=== PATIENT | female | born 1985 | race Caucasian/White ===

== ENCOUNTER 2016-08-16 17:23 | Emergency (ER) | payer OTHER ==
[2016-08-16] MEDS ORDERED: ONDANSETRON 4MG/2ML VIAL (J2405) As Ordered ONE (17:47)
[2016-08-16 18:11] LABS: BASO % 0.4 % (0.0-1.0); EOS % 0.5 % (0.0-3.0); LARGE UNSTAINED CELL # 0.2 K/mm3 (0.0-0.4); LARGE UNSTAINED CELL % 1.9 % (0.0-4.0); MEAN CORPUSCULAR HGB CONC 33.9 g/dl (32.0-36.5); MEAN CORPUSCULAR VOLUME 79.8 fl (80.0-96.0); MONO # 0.4 K/mm3 (0.0-0.8); MONO % 4.5 % (0.0-5.0); NEUTROPHILS % 71.8 % (36.0-66.0); PLATELET COUNT, AUTOMATED 302 k/mm3 (150-450); RED CELL DISTRIBUTION WIDTH 12.7 % (11.5-14.5); WHITE BLOOD COUNT 9.7 K/mm3 (4.0-10.0)
--- NOTE | 2016-08-16 18:28 | REP ---
Clinical: Dating and viability. Technique: Transabdominal first trimester examination with color Doppler evaluation. Findings: Single live early intrauterine is appreciated. Gestational sac with yolk sac and pole identified. [place]-rump length of 19 mm corresponds to 8 weeks 3 days gestational age with estimated date of delivery 03/25/2017 . heart rate equals 171 beats per minute. No gross abnormalities are identified. Impression: Single live early intrauterine at 8 weeks 3 days gestational age. Complete anatomical assessment should be performed and 19-20 weeks. Signed by Chace Ramsey MD 08/16/2016 06:19 P
[2016-08-16 18:49] LABS: ANION GAP 10 MEQ/L (8-16); BLOOD UREA NITROGEN 6 MG/DL (7-18); CALCIUM LEVEL 8.6 MG/DL (8.5-10.1); CARBON DIOXIDE LEVEL 24 MEQ/L (21-32); CHLORIDE LEVEL 102 MEQ/L (98-107); CREATININE FOR GFR 0.78 MG/DL (0.55-1.02); GLOMERULAR FILTRATION RATE > 60.0 (>60); GLUCOSE, FASTING 82 MG/DL (70-105); HCG, SERUM QUANTITATIVE 106595 MIU/ML; POTASSIUM SERUM 3.8 MEQ/L (3.5-5.1); SODIUM LEVEL 136 MEQ/L (136-145)
[2016-08-16] MEDS ORDERED: ACETAMINOPHEN 325 MG TAB As Ordered ONE (19:31)
--- NOTE | 2016-08-16 19:38 | EDDOCDS ---
Nurse's Notes [facility] Name: Vadim Simmons Age: 31 yrs Sex: Female : 1985 Arrival Date: 08/16/2016 Time: 17:23 Bed I1 / M1 Private MD: Sarah Hughes ANP Diagnosis: Vomiting;Other specified related conditions Presentation: 08/16 17:27 Presenting complaint: Patient states: "I'm having abdominal pains since this morning. I mb9 tried to work but I don't understand it. I've been vomiting and I'm ". Risk factors: the patient reports no vaginal bleeding. Adult Sepsis Screening: The patient does not have new or worsening altered mentation. Patient's respiratory rate is less than 22. Systolic blood pressure is greater than 100. Patient has a qSOFA score of 0- Negative Sepsis Screen. Suicide/Homicide risk assessment- the patient denies having any suicidal and/or homicidal ideations and does not present with any other emotional, behavioral or mental health complaints. Status: Patient is not a vehicle service agent or dependent. Transition of care: patient was not received from another setting of care. 17:27 Acuity: CHANELLE Level 3 mb9 17:27 Method Of Arrival: Walkin/Carried/Asstd mb9 Triage Assessment: 17:29 General: Appears distressed, Behavior is crying. Pain: Location: abdomen Pain currently mb9 is 10 out of 10 on a pain scale. Quality of pain is described as sharp, stabbing, Pain began this am. HIV screening NA for this visit Offered previously. Respiratory: Airway is patent Respiratory effort is even, unlabored. GI: Abdomen is obese, Reports nausea, vomiting. BATTERY STACKER: 17:29 2, Full Term 1, Living 1, LMP 06/14/2016, Verified, EDC 03/21/2017, pml Gestational age from LMP: 9 weeks 0 days Historical: - Allergies: no known allergies; - Home Meds: 1. aspirin 325 mg Oral tab 2 tabs as needed 2. ferrous sulfate 325 mg (65 mg iron) Oral TbEC three times a day 3. Omeprazole 15 mg Oral once daily 4. Sertraline 100 mg daily 5. Vitamin C Oral daily 6. Vitamin D Oral daily 7. Vitamin Oral tab 1 tab once daily - PMHx: Anemia; Depression; GERD; vitamin c and vitamin d deficiency; - PSHx: ; - Social history: Smoking status: Patient states was never smoker of tobacco. No barriers to communication noted, The patient speaks fluent Armenian. - Family history: Not pertinent. - : The pt / caregiver states he / she is not on anticoagulants. Home medication list is obtained from the patient. - Exposure Risk Screening:: None identified. Screenin:01 Screening information is obtained from the patient. Fall risk: No risks identified. pml Assistance ADL's: requires no assistance with activities of daily living. Abuse/DV Screen: The patient / caregiver reports he/she is: not in a situation that causes fear, pain or injury. Nutritional screening: No deficits noted. Advance Directives: Currently, there is no health care proxy. home support is adequate. Assessment: 18:01 General: Appears uncomfortable, Behavior is appropriate for age, cooperative, crying. pml Pain: Location: abdomen Pain currently is 10 out of 10 on a pain scale. Neurological: Level of Consciousness is awake, alert, Oriented to person, place, time. Cardiovascular: Capillary refill < 3 seconds. Respiratory: Airway is patent Respiratory effort is even, unlabored, Respiratory pattern is regular, symmetrical. GI: Abdomen is non- distended obese, Bowel sounds present X 4 quads. Abd is soft X 4 quads Abd is tender to palpation in right lower quadrant and left lower quadrant. Derm: Skin is pink, warm & dry. 19:34 General: Appears in no apparent distress, comfortable, Behavior is appropriate for age, slm cooperative, pt tolerated fluids . Vital Signs: 17:25 BP 155 / 86; Pulse 76; Resp 18; Temp 98.0(O); Pulse Ox 100% on R/A; Weight 119.29 kg [facility] (R); Height 5 ft. 6 in. (167.64 cm) (R); Pain 10/10; 19:35 BP 134 / 80; Pulse 78; Resp 18; Temp 98.1; Pulse Ox 100% ; slm 17:25 Body Mass Index 42.45 (119.29 kg, 167.64 cm) [facility] Vitals: 17:25 Log In Time: August 16, 2016 at 17:23. [facility] ED Course: 17:25 Patient visited by Laverne Krueger. [facility] 17:25 Sarah Hughes is Private Physician. dem1 17:25 Patient moved to Waiting dem1 17:26 Patient moved to Pre RCE dem1 17:28 Triage Initiated mb9 17:31 Patient moved to Triage 1 mb9 17:35 [facility] ck7 17:35 Aditya Melgoza MD is Attending Physician. ck7 17:35 Patient visited by Frank Han RPA-C. ck7 17:41 Patient moved to I1 / M1 mb9 17:59 Patient moved to Ultrasound am17 18:01 The patient / caregiver is instructed regarding the plan of care and ED course. Patient pml has correct armband on for positive identification. Bed in low position. Call light in reach. 18:01 Inserted peripheral IV: 20gauge IV in right antecubital area and blood collected. pml Patient tolerated the procedure well. 18:02 Patient visited by Christiane Abad RN. pml 18:10 Patient moved to I1 / M1 am17 18:48 Patient visited by Frank Han RPA-C. ck7 18:55 US 1st trimester Returned. EDMS 18:59 [facility] Payment Agreement was scanned into [employer] and attached to record. kf3 19:23 Patient visited by Frank Han RPA-C. ck7 19:34 Luz Maria Mckeon LPN is Primary Nurse. slm 19:35 Discontinued lock intact, bleeding controlled, pressure dressing applied, No slm redness/swelling at site. No procedures done that require assistance. 19:36 Patient visited by Luz Maria Mckeon LPN. slm Administered Medications: 18:00 Drug: Ondansetron 4 mg [ondansetron HCl 2 mg/mL intravenous solution (2 mL)] Route: pml IVP; Site: right antecubital; 19:37 Follow up: Response: Nausea is resolved slm 18:00 Drug: NS 0.9% 1000 ml [sodium chloride 0.9 % injection solution] Route: IV; Rate: pml bolus; Site: right antecubital; 19:23 Follow up: IV Status: Completed infusion; IV Intake: 1000ml slm 19:34 Drug: Acetaminophen 650 mg [acetaminophen 325 mg tablet (2 tabs)] Route: PO; slm Intake: 19:23 IV: 1000.00ml; Total: 1000.00ml. slm Order Results: Lab Order: CBC with Diff; SPEC'M 08/16/16 17:55 Test: WHITE BLOOD COUNT; Value: 9.7; Range: 4.0-10.0; Units: K/mm3; Status: F Test: RED BLOOD COUNT; Value: 4.60; Range: 4.00-5.40; Units: M/mm3; Status: F Test: HEMOGLOBIN; Value: 12.4; Range: 12.0-16.0; Units: g/dl; Status: F Test: HEMATOCRIT; Value: 36.7; Range: 36.0-47.0; Units: %; Status: F Test: MEAN CORPUSCULAR VOLUME; Value: 79.8; Range: 80.0-96.0; Abnormal: Below low normal; Units: fl; Status: F Test: MEAN CORPUSCULAR HEMOGLOBIN; Value: 27.0; Range: 27.0-33.0; Units: pg; Status: F Test: MEAN CORPUSCULAR HGB CONC; Value: 33.9; Range: 32.0-36.5; Units: g/dl; Status: F Test: RED CELL DISTRIBUTION WIDTH; Value: 12.7; Range: 11.5-14.5; Units: %; Status: F Test: PLATELET COUNT, AUTOMATED; Value: 302; Range: 150-450; Units: k/mm3; Status: F Test: NEUTROPHILS %; Value: 71.8; Range: 36.0-66.0; Abnormal: Above high normal; Units: %; Status: F Test: LYMPH %; Value: 21.0; Range: 24.0-44.0; Abnormal: Below low normal; Units: %; Status: F Test: MONO %; Value: 4.5; Range: 0.0-5.0; Units: %; Status: F Test: EOS %; Value: 0.5; Range: 0.0-3.0; Units: %; Status: F Test: BASO %; Value: 0.4; Range: 0.0-1.0; Units: %; Status: F Test: LARGE UNSTAINED CELL %; Value: 1.9; Range: 0.0-4.0; Units: %; Status: F Test: NEUTROPHILS #; Value: 7.0; Range: 1.8-7.7; Units: K/mm3; Status: F Test: LYMPH #; Value: 2.0; Range: 1.5-4.5; Units: K/mm3; Status: F Test: MONO #; Value: 0.4; Range: 0.0-0.8; Units: K/mm3; Status: F Test: EOS #; Value: 0.0; Range: 0.0-0.50; Units: K/mm3; Status: F Test: BASO #; Value: 0.0; Range: 0.0-0.2; Units: K/mm3; Status: F Test: LARGE UNSTAINED CELL #; Value: 0.2; Range: 0.0-0.4; Units: K/mm3; Status: F Lab Order: MED Profile; [facility]' 08/16/16 17:55 Test: GLUCOSE, FASTING; Value: 82; Range: 70-105; Units: MG/DL; Status: F Test: BLOOD UREA NITROGEN; Value: 6; Range: 7-18; Abnormal: Below low normal; Units: MG/DL; Status: F Test: CREATININE FOR GFR; Value: 0.78; Range: 0.55-1.02; Units: MG/DL; Status: F Test: GLOMERULAR FILTRATION RATE; Value: > 60.0; Range: >60; Status: F Test: SODIUM LEVEL; Value: 136; Range: 136-145; Units: MEQ/L; Status: F Test: POTASSIUM SERUM; Value: 3.8; Range: 3.5-5.1; Units: MEQ/L; Status: F Test: CHLORIDE LEVEL; Value: 102; Range: 98-107; Units: MEQ/L; Status: F Test: CARBON DIOXIDE LEVEL; Value: 24; Range: 21-32; Units: MEQ/L; Status: F Test: ANION GAP; Value: 10; Range: 8-16; Units: MEQ/L; Status: F Test: CALCIUM LEVEL; Value: 8.6; Range: 8.5-10.1; Units: MG/DL; Status: F Test Note: ; Units are mL/min/1.73 m2 Chronic Kidney Disease Staging per NKF: Stage I & II GFR >=60 Normal to Mildly Decreased Stage III GFR 30-59 Moderately Decreased Stage IV GFR 15-29 Severely Decreased Stage V GFR <15 Very Little GFR Left ESRD GFR <15 on CAR HOSTLER Lab Order: Hcg, Serum Quantitative; [facility] 08/16/16 17:55 Test: HCG, SERUM QUANTITATIVE; Value: [id number]; Units: MIU/ML; Status: F Test Note: ; GESTATIONAL AGE APPROXIMATE HCG RANGE (MIU/ML) 0.2-1 WEEK 5-50 1-2 WEEKS 50-500 2-3 WEEKS 100-5,000 3-4 WEEKS 500-10,000 4-5 WEEKS 1,000-50,000 5-6 WEEKS 10,000-100,000 6-8 WEEKS 15,000-200,000 2-3 MONTHS 10,000-100,000 NON FEMALES LESS THAN 3.0 Patient samples may contain human heterophilic antibodies that could react with immunoassays to give falsely elevated or depressed results. This assay has been designed to minimize interference from heterophilic antibodies. Elevated hCG levels have also been associated with trophoblastic disease and nontrophoblastic neoplasms. The possibility of having these diseases should be considered before a diagnosis of is made. This test is not intended for use as a surrogate marker for aiding in the diagnosis or monitoring the treatment of cancer patients. Siemens [place] methodology. Lab Order: Type & Screen; [facility] 08/16/16 17:55 Test: BLOOD TYPE; Value: A POS; Status: F Test: AB SCREEN (INDIRECT JEFFREY)VIS; Value: NEGATIVE; Status: F Lab Order: UA; [facility] 08/16/16 17:55 Test: APPEARANCE, URINE; Value: CLEAR; Range: CLEAR; Status: F Test: COLOR, URINE; Value: YELLOW; Range: YELLOW; Status: F Test: PH,URINE; Value: 6.0; Range: 5.0-9.0; Units: UNITS; Status: F Test: SPECIFIC GRAVITY URINE AUTO; Value: 1.005; Range: 1.002-1.035; Status: F Test: PROTEIN, URINE AUTO; Value: NEGATIVE; Range: NEGATIVE; Units: mg/dL; Status: F Test: GLUCOSE, URINE (UA) AUTO; Value: NEGATIVE; Range: NEGATIVE; Units: mg/dL; Status: F Test: KETONE, URINE AUTO; Value: NEGATIVE; Range: NEGATIVE; Units: mg/dL; Status: F Test: UROBILINOGEN, URINE AUTO; Value: 0.2; Range: 0.0-2.0; Units: mg/dL; Status: F Test: BILIRUBIN, URINE AUTO; Value: NEGATIVE; Range: NEGATIVE; Status: F Test: NITRITE, URINE AUTO; Value: NEGATIVE; Range: NEGATIVE; Status: F Test: LEUKOCYTE ESTERASE, URINE AUTO; Value: NEGATIVE; Range: NEGATIVE; Status: F Test: BLOOD, URINE BLOOD; Value: NEGATIVE; Range: NEGATIVE; Status: F Test: WBC, URINE AUTO; Value: 2; Range: 0-3; Units: /HPF; Status: F Test: RBC, URINE AUTO; Value: 1; Range: 0-3; Units: /HPF; Status: F Test: BACTERIA, URINE AUTO; Value: 1+; Range: NEGATIVE; Abnormal: Above high normal; Status: F Test: SQUAMOUS EPITHELIAL CELL UR AU; Value: 3; Range: 0-6; Units: /HPF; Status: F Test: HYALINE CAST, URINE AUTO; Value: 0; Range: 0-1; Units: /LPF; Status: F Radiology Order: US 1st trimester Test: US 1st trimester REASON FOR EXAMINATION: ABDOMINAL PAIN AND CRAMPING, R/O DEMISE; Clinical: Dating and viability.; ; Technique: Transabdominal first trimester examination with color Doppler; evaluation.; ; Findings:; Single live early intrauterine is appreciated. Gestational sac with; yolk sac and pole identified. [place]-rump length of 19 mm corresponds to 8; weeks 3 days gestational age with estimated date of delivery 03/25/2017 . ; heart rate equals 171 beats per minute. No gross abnormalities are identified.; ; Impression:; Single live early intrauterine at 8 weeks 3 days gestational age.; Complete anatomical assessment should be performed and 19-20 weeks.; ; ; Signed by; Chace Ramsey MD 08/16/2016 06:19 P; Outcome: 19:29 Discharge ordered by Provider. ck7 19:36 Discharge Assessment: Patient awake, alert and oriented x 3. No cognitive and/or slm functional deficits noted. Patient verbalized understanding of disposition instructions. patient administered narcotics - no. The following High Risk Discharge criteria are identified: None. Discharged to home ambulatory. Condition: good. Discharge instructions given to patient, Instructed on discharge instructions, follow up and referral plans. medication usage, Demonstrated understanding of instructions, medications, Pt was receptive of discharge instructions/ teaching. Prescriptions given X 1. Ultrasound Study completed. Property :Personal belongings accompany Pt. 19:38 Patient left the ED. slm Signatures: Dispatcher [employer] EDMS Wilfredo Novoa, Reg Reg kf3 Christiane AbadRN RN Laverne Cee1 Frank Han, JUNAID-C RPA-Cck7 Luz Maria Mckeon LPN SCREENER OPERATOR Senia Avitia am17 Connor WattsRN RN mb9 Corrections: (The following items were deleted from the chart) 17:45 17:29 2, Full Term 1, Living 1, LMP 06/14/2016 alo9 onel MTDD
--- NOTE | 2016-08-16 19:38 | EDDOCDS ---
Physician Documentation [facility] Name: Vadim Simmons Age: 31 yrs Sex: Female : 1985 Arrival Date: 08/16/2016 Time: 17:23 Bed I1 / M1 Private MD: Sarah Hughes ANP Disposition: 08/16/16 19:29 Discharged to Home/Self Care. Impression: Vomiting, Other specified related conditions. - Condition is Stable. - Discharge Instructions: First Trimester of , Nausea and Vomiting. - Prescriptions for ZOFRAN ODT 4 mg - dissolve 1 tablet by ORAL route 4 times per day As needed do not chew, do not swallow whole; 10 tablet. - Medication Reconciliation, Local Pharmacy Hours form. - Follow up: Private Physician; When: Tomorrow; Reason: Recheck today's complaints, Continuance of care. - Problem is new. - Symptoms have improved. - Notes: USE MEDICATION INSTRUTCED, FOLLOW UP WITH YOUR DOCTOR IN 2-3 DAYS, RETURN TO THE ER IF THE SYMPTOMS WORSEN OR BECOME CONCERNING Historical: - Allergies: no known allergies; - Home Meds: 1. aspirin 325 mg Oral tab 2 tabs as needed 2. ferrous sulfate 325 mg (65 mg iron) Oral TbEC three times a day 3. Omeprazole 15 mg Oral once daily 4. Sertraline 100 mg daily 5. Vitamin C Oral daily 6. Vitamin D Oral daily 7. Vitamin Oral tab 1 tab once daily - PMHx: Anemia; Depression; GERD; vitamin c and vitamin d deficiency; - PSHx: ; - Social history: Smoking status: Patient states was never smoker of tobacco. No barriers to communication noted, The patient speaks fluent Honduran. - Family history: Not pertinent. - : The pt / caregiver states he / she is not on anticoagulants. Home medication list is obtained from the patient. - Exposure Risk Screening:: None identified. HURL SHAKER: 08/16 17:29 2, Full Term 1, Living 1, LMP 06/14/2016, Verified, EDC 03/21/2017, pml Gestational age from LMP: 9 weeks 0 days Vital Signs: 17:25 BP 155 / 86; Pulse 76; Resp 18; Temp 98.0(O); Pulse Ox 100% on R/A; Weight 119.29 kg / dem1 262.99 lbs (R); Height 5 ft. 6 in. (167.64 cm) (R); Pain 10/10; 19:35 BP 134 / 80; Pulse 78; Resp 18; Temp 98.1; Pulse Ox 100% ; slm 17:25 Body Mass Index 42.45 (119.29 kg, 167.64 cm) dem1 MDM: 17:41 IV Saline Lock ordered. ck7 17:41 Ondansetron 4 mg IVP once ordered. ck7 17:41 NS 0.9% 1000 ml IV at bolus once ordered. ck7 17:42 CBC with Diff Ordered. EDMS 17:42 MED Profile Ordered. EDMS 17:42 Hcg, Serum Quantitative Ordered. EDMS 17:42 Type & Screen Ordered. EDMS 17:42 UA Ordered. EDMS 17:42 Urine Culture Ordered. EDMS 17:43 US 1st trimester Ordered. EDMS 18:48 CBC with Diff Reviewed. ck7 18:48 Financial registration complete. kf3 18:52 MED Profile Reviewed. ck7 18:52 Hcg, Serum Quantitative Reviewed. ck7 18:59 [facility] Payment Agreement was scanned into [employer] and attached to record. kf3 19:15 UA Reviewed. ck7 19:15 Type & Screen Reviewed. ck7 19:15 US 1st trimester Reviewed. ck7 19:17 Fluid Challenge ordered. ck7 19:27 Acetaminophen Tablet 650 mg PO once ordered. ck7 Administered Medications: 18:00 Drug: Ondansetron 4 mg [ondansetron HCl 2 mg/mL intravenous solution (2 mL)] Route: pml IVP; Site: right antecubital; 19:37 Follow up: Response: Nausea is resolved [facility] 18:00 Drug: NS 0.9% 1000 ml [sodium chloride 0.9 % injection solution] Route: IV; Rate: pml bolus; Site: right antecubital; 19:23 Follow up: IV Status: Completed infusion; IV Intake: 1000ml [facility] 19:34 Drug: Acetaminophen 650 mg [acetaminophen 325 mg tablet (2 tabs)] Route: PO; [facility] Signatures: Dispatcher [employer] EDMS Wilfredo Novoa, Reg Reg kf3 Christiane Abad,LYNSEY RN pml Frank Han, JUNAID-C RPA-Cck7 Luz Maria Mckeon LPN LPN [facility] Connor Watts,RN RN mb9 The chart was reviewed and I authenticate all verbal orders and agree with the evaluation and treatment provided.Attachments: 18:59 [facility] Payment Agreement kf3 MTDD
--- NOTE | 2016-08-18 20:38 | EDDOCDS ---
Physician Documentation [facility] Name: Vadim Simmons Age: 31 yrs Sex: Female : 1985 Arrival Date: 08/16/2016 Time: 17:23 Bed I1 / M1 Private MD: Sarah Hughes ANP Disposition: 08/16/16 19:29 Discharged to Home/Self Care. Impression: Vomiting, Other specified related conditions. - Condition is Stable. - Discharge Instructions: First Trimester of , Nausea and Vomiting. - Prescriptions for ZOFRAN ODT 4 mg - dissolve 1 tablet by ORAL route 4 times per day As needed do not chew, do not swallow whole; 10 tablet. - Medication Reconciliation, Local Pharmacy Hours form. - Follow up: Private Physician; When: Tomorrow; Reason: Recheck today's complaints, Continuance of care. - Problem is new. - Symptoms have improved. - Notes: USE MEDICATION INSTRUTCED, FOLLOW UP WITH YOUR DOCTOR IN 2-3 DAYS, RETURN TO THE ER IF THE SYMPTOMS WORSEN OR BECOME CONCERNING Historical: - Allergies: no known allergies; - Home Meds: 1. aspirin 325 mg Oral tab 2 tabs as needed 2. ferrous sulfate 325 mg (65 mg iron) Oral TbEC three times a day 3. Omeprazole 15 mg Oral once daily 4. Sertraline 100 mg daily 5. Vitamin C Oral daily 6. Vitamin D Oral daily 7. Vitamin Oral tab 1 tab once daily - PMHx: Anemia; Depression; GERD; vitamin c and vitamin d deficiency; - PSHx: ; - Social history: Smoking status: Patient states was never smoker of tobacco. No barriers to communication noted, The patient speaks fluent Lebanese. - Family history: Not pertinent. - : The pt / caregiver states he / she is not on anticoagulants. Home medication list is obtained from the patient. - Exposure Risk Screening:: None identified. BATTERY STACKER: 08/16 17:29 2, Full Term 1, Living 1, LMP 06/14/2016, Verified, EDC 03/21/2017, pml Gestational age from LMP: 9 weeks 0 days Vital Signs: 17:25 BP 155 / 86; Pulse 76; Resp 18; Temp 98.0(O); Pulse Ox 100% on R/A; Weight 119.29 kg / dem1 262.99 lbs (R); Height 5 ft. 6 in. (167.64 cm) (R); Pain 10/10; 19:35 BP 134 / 80; Pulse 78; Resp 18; Temp 98.1; Pulse Ox 100% ; slm 17:25 Body Mass Index 42.45 (119.29 kg, 167.64 cm) dem1 MDM: 17:41 IV Saline Lock ordered. ck7 17:41 Ondansetron 4 mg IVP once ordered. ck7 17:41 NS 0.9% 1000 ml IV at bolus once ordered. ck7 17:42 CBC with Diff Ordered. EDMS 17:42 MED Profile Ordered. EDMS 17:42 Hcg, Serum Quantitative Ordered. EDMS 17:42 Type & Screen Ordered. EDMS 17:42 UA Ordered. EDMS 17:42 Urine Culture Ordered. EDMS 17:43 US 1st trimester Ordered. EDMS 18:48 CBC with Diff Reviewed. ck7 18:48 Financial registration complete. kf3 18:52 MED Profile Reviewed. ck7 18:52 Hcg, Serum Quantitative Reviewed. ck7 18:59 [facility] Payment Agreement was scanned into [employer] and attached to record. kf3 19:15 UA Reviewed. ck7 19:15 Type & Screen Reviewed. ck7 19:15 US 1st trimester Reviewed. ck7 19:17 Fluid Challenge ordered. ck7 19:27 Acetaminophen Tablet 650 mg PO once ordered. ck7 20:13 T-Sheet-- Draft Copy was scanned into [employer] and attached to record. klr Administered Medications: 18:00 Drug: Ondansetron 4 mg [ondansetron HCl 2 mg/mL intravenous solution (2 mL)] Route: pml IVP; Site: right antecubital; 19:37 Follow up: Response: Nausea is resolved [facility] 18:00 Drug: NS 0.9% 1000 ml [sodium chloride 0.9 % injection solution] Route: IV; Rate: pml bolus; Site: right antecubital; 19:23 Follow up: IV Status: Completed infusion; IV Intake: 1000ml [facility] 19:34 Drug: Acetaminophen 650 mg [acetaminophen 325 mg tablet (2 tabs)] Route: PO; [facility] Signatures: Dispatcher [employer] EDMS Wilfredo Novoa, Reg Reg kf3 Christiane Abad RN RN pml Kwaczala, Christopher, RPA-C RPA-Cck7 Luz Maria Mckeon LPN LPN Connor Marcos RN RN mb9 Roxie Triplett The chart was reviewed and I authenticate all verbal orders and agree with the evaluation and treatment provided.Attachments: 18:59 [facility] Payment Agreement kf3 20:13 T-Sheet-- Draft Copy klr Chart Complete MTDD
--- NOTE | 2016-08-18 20:38 | EDDOCDS ---
Physician Documentation [facility] Name: Vadim Simmons Age: 31 yrs Sex: Female : 1985 Arrival Date: 08/16/2016 Time: 17:23 Bed I1 / M1 Private MD: Sarah Hughes ANP Disposition: 08/16/16 19:29 Discharged to Home/Self Care. Impression: Vomiting, Other specified related conditions. - Condition is Stable. - Discharge Instructions: First Trimester of , Nausea and Vomiting. - Prescriptions for ZOFRAN ODT 4 mg - dissolve 1 tablet by ORAL route 4 times per day As needed do not chew, do not swallow whole; 10 tablet. - Medication Reconciliation, Local Pharmacy Hours form. - Follow up: Private Physician; When: Tomorrow; Reason: Recheck today's complaints, Continuance of care. - Problem is new. - Symptoms have improved. - Notes: USE MEDICATION INSTRUTCED, FOLLOW UP WITH YOUR DOCTOR IN 2-3 DAYS, RETURN TO THE ER IF THE SYMPTOMS WORSEN OR BECOME CONCERNING Historical: - Allergies: no known allergies; - Home Meds: 1. aspirin 325 mg Oral tab 2 tabs as needed 2. ferrous sulfate 325 mg (65 mg iron) Oral TbEC three times a day 3. Omeprazole 15 mg Oral once daily 4. Sertraline 100 mg daily 5. Vitamin C Oral daily 6. Vitamin D Oral daily 7. Vitamin Oral tab 1 tab once daily - PMHx: Anemia; Depression; GERD; vitamin c and vitamin d deficiency; - PSHx: ; - Social history: Smoking status: Patient states was never smoker of tobacco. No barriers to communication noted, The patient speaks fluent German. - Family history: Not pertinent. - : The pt / caregiver states he / she is not on anticoagulants. Home medication list is obtained from the patient. - Exposure Risk Screening:: None identified. 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 6 in. (167.64 cm) (R); Pain 10/10; 19:35 BP 134 / 80; Pulse 78; Resp 18; Temp 98.1; Pulse Ox 100% ; slm 17:25 Body Mass Index 42.45 (119.29 kg, 167.64 cm) dem1 MDM: 17:41 IV Saline Lock ordered. ck7 17:41 Ondansetron 4 mg IVP once ordered. ck7 17:41 NS 0.9% 1000 ml IV at bolus once ordered. ck7 17:42 CBC with Diff Ordered. EDMS 17:42 MED Profile Ordered. EDMS 17:42 Hcg, Serum Quantitative Ordered. EDMS 17:42 Type & Screen Ordered. EDMS 17:42 UA Ordered. EDMS 17:42 Urine Culture Ordered. EDMS 17:43 US 1st trimester Ordered. EDMS 18:48 CBC with Diff Reviewed. ck7 18:48 Financial registration complete. kf3 18:52 MED Profile Reviewed. ck7 18:52 Hcg, Serum Quantitative Reviewed. ck7 18:59 [facility] Payment Agreement was scanned into [employer] and attached to record. kf3 19:15 UA Reviewed. ck7 19:15 Type & Screen Reviewed. ck7 19:15 US 1st trimester Reviewed. ck7 19:17 Fluid Challenge ordered. ck7 19:27 Acetaminophen Tablet 650 mg PO once ordered. ck7 20:13 T-Sheet-- Draft Copy was scanned into [employer] and attached to record. klr Administered Medications: 18:00 Drug: Ondansetron 4 mg [ondansetron HCl 2 mg/mL intravenous solution (2 mL)] Route: pml IVP; Site: right antecubital; 19:37 Follow up: Response: Nausea is resolved [facility] 18:00 Drug: NS 0.9% 1000 ml [sodium chloride 0.9 % injection solution] Route: IV; Rate: pml bolus; Site: right antecubital; 19:23 Follow up: IV Status: Completed infusion; IV Intake: 1000ml [facility] 19:34 Drug: Acetaminophen 650 mg [acetaminophen 325 mg tablet (2 tabs)] Route: PO; [facility] Signatures: Dispatcher [employer] EDMS Wilfredo Novoa, Reg Reg kf3 Christiane Abad RN RN pml Kwaczala, Christopher, RPA-C RPA-[id number] Luz Maria Mckeon LPN LPN Connor Marcos RN RN mb9 Roxie Triplett The chart was reviewed and I authenticate all verbal orders and agree with the evaluation and treatment provided.Attachments: 18:59 [facility] Payment Agreement kf3 20:13 T-Sheet-- Draft Copy klr Chart Complete MTDD
--- NOTE | 2016-08-18 20:38 | EDDOCDS ---
Nurse's Notes [facility] Name: Vadim Simmons Age: 31 yrs Sex: Female : 1985 Arrival Date: 08/16/2016 Time: 17:23 Bed I1 / M1 Private MD: Sarah Hughes ANP Diagnosis: Vomiting;Other specified related conditions Presentation: 08/16 17:27 Presenting complaint: Patient states: "I'm having abdominal pains since this morning. I mb9 tried to work but I don't understand it. I've been vomiting and I'm ". Risk factors: the patient reports no vaginal bleeding. Adult Sepsis Screening: The patient does not have new or worsening altered mentation. Patient's respiratory rate is less than 22. Systolic blood pressure is greater than 100. Patient has a qSOFA score of 0- Negative Sepsis Screen. Suicide/Homicide risk assessment- the patient denies having any suicidal and/or homicidal ideations and does not present with any other emotional, behavioral or mental health complaints. Status: Patient is not a food service aide or dependent. Transition of care: patient was not received from another setting of care. 17:27 Acuity: CHANELLE Level 3 mb9 17:27 Method Of Arrival: Walkin/Carried/Asstd mb9 Triage Assessment: 17:29 General: Appears distressed, Behavior is crying. Pain: Location: abdomen Pain currently mb9 is 10 out of 10 on a pain scale. Quality of pain is described as sharp, stabbing, Pain began this am. HIV screening NA for this visit Offered previously. Respiratory: Airway is patent Respiratory effort is even, unlabored. GI: Abdomen is obese, Reports nausea, vomiting. 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 aspirin 325 mg Oral tab 2 tabs as needed 2. ferrous sulfate 325 mg (65 mg iron) Oral TbEC three times a day 3. Omeprazole 15 mg Oral once daily 4. Sertraline 100 mg daily 5. Vitamin C Oral daily 6. Vitamin D Oral daily 7. Vitamin Oral tab 1 tab once daily - PMHx: Anemia; Depression; GERD; vitamin c and vitamin d deficiency; - PSHx: ; - Social history: Smoking status: Patient states was never smoker of tobacco. No barriers to communication noted, The patient speaks fluent Spanish. - Family history: Not pertinent. - : The pt / caregiver states he / she is not on anticoagulants. Home medication list is obtained from the patient. - Exposure Risk Screening:: None identified. Screenin:01 Screening information is obtained from the patient. Fall risk: No risks identified. pml Assistance ADL's: requires no assistance with activities of daily living. Abuse/DV Screen: The patient / caregiver reports he/she is: not in a situation that causes fear, pain or injury. Nutritional screening: No deficits noted. Advance Directives: Currently, there is no health care proxy. home support is adequate. Assessment: 18:01 General: Appears uncomfortable, Behavior is appropriate for age, cooperative, crying. pml Pain: Location: abdomen Pain currently is 10 out of 10 on a pain scale. Neurological: Level of Consciousness is awake, alert, Oriented to person, place, time. Cardiovascular: Capillary refill < 3 seconds. Respiratory: Airway is patent Respiratory effort is even, unlabored, Respiratory pattern is regular, symmetrical. GI: Abdomen is non- distended obese, Bowel sounds present X 4 quads. Abd is soft X 4 quads Abd is tender to palpation in right lower quadrant and left lower quadrant. Derm: Skin is pink, warm & dry. 19:34 General: Appears in no apparent distress, comfortable, Behavior is appropriate for age, slm cooperative, pt tolerated fluids . Vital Signs: 17:25 BP 155 / 86; Pulse 76; Resp 18; Temp 98.0(O); Pulse Ox 100% on R/A; Weight 119.29 kg [facility] (R); Height 5 ft. 6 in. (167.64 cm) (R); Pain 10/10; 19:35 BP 134 / 80; Pulse 78; Resp 18; Temp 98.1; Pulse Ox 100% ; slm 17:25 Body Mass Index 42.45 (119.29 kg, 167.64 cm) [facility] Vitals: 17:25 Log In Time: August 16, 2016 at 17:23. [facility] ED Course: 17:25 Patient visited by Laverne Krueger. [facility] 17:25 Sarah Hughes is Private Physician. dem1 17:25 Patient moved to Waiting dem1 17:26 Patient moved to Pre RCE dem1 17:28 Triage Initiated mb9 17:31 Patient moved to Triage 1 mb9 17:35 [facility] ck7 17:35 Aditya Melgoza MD is Attending Physician. ck7 17:35 Patient visited by Frank Han RPA-C. ck7 17:41 Patient moved to I1 / M1 mb9 17:59 Patient moved to Ultrasound am17 18:01 The patient / caregiver is instructed regarding the plan of care and ED course. Patient pml has correct armband on for positive identification. Bed in low position. Call light in reach. 18:01 Inserted peripheral IV: 20gauge IV in right antecubital area and blood collected. pml Patient tolerated the procedure well. 18:02 Patient visited by Christiane Abad RN. pml 18:10 Patient moved to I1 / M1 am17 18:48 Patient visited by Frank Han RPA-C. ck7 18:55 US 1st trimester Returned. EDMS 18:59 [facility] Payment Agreement was scanned into [employer] and attached to record. kf3 19:23 Patient visited by Frank Han RPA-C. ck7 19:34 Luz Maria Mckeon LPN is Primary Nurse. slm 19:35 Discontinued lock intact, bleeding controlled, pressure dressing applied, No slm redness/swelling at site. No procedures done that require assistance. 19:36 Patient visited by Luz Maria Mckeon LPN. slm 20:13 T-Sheet-- Draft Copy was scanned into [employer] and attached to record. klr Administered Medications: 18:00 Drug: Ondansetron 4 mg [ondansetron HCl 2 mg/mL intravenous solution (2 mL)] Route: pml IVP; Site: right antecubital; 19:37 Follow up: Response: Nausea is resolved [facility] 18:00 Drug: NS 0.9% 1000 ml [sodium chloride 0.9 % injection solution] Route: IV; Rate: pml bolus; Site: right antecubital; 19:23 Follow up: IV Status: Completed infusion; IV Intake: 1000ml [facility] 19:34 Drug: Acetaminophen 650 mg [acetaminophen 325 mg tablet (2 tabs)] Route: PO; [facility] Intake: 19:23 IV: 1000.00ml; Total: 1000.00ml. [facility] Order Results: Lab Order: CBC with Diff; SPEC'M 08/16/16 17:55 Test: WHITE BLOOD COUNT; Value: 9.7; Range: 4.0-10.0; Units: K/mm3; Status: F Test: RED BLOOD COUNT; Value: 4.60; Range: 4.00-5.40; Units: M/mm3; Status: F Test: HEMOGLOBIN; Value: 12.4; Range: 12.0-16.0; Units: g/dl; Status: F Test: HEMATOCRIT; Value: 36.7; Range: 36.0-47.0; Units: %; Status: F Test: MEAN CORPUSCULAR VOLUME; Value: 79.8; Range: 80.0-96.0; Abnormal: Below low normal; Units: fl; Status: F Test: MEAN CORPUSCULAR HEMOGLOBIN; Value: 27.0; Range: 27.0-33.0; Units: pg; Status: F Test: MEAN CORPUSCULAR HGB CONC; Value: 33.9; Range: 32.0-36.5; Units: g/dl; Status: F Test: RED CELL DISTRIBUTION WIDTH; Value: 12.7; Range: 11.5-14.5; Units: %; Status: F Test: PLATELET COUNT, AUTOMATED; Value: 302; Range: 150-450; Units: k/mm3; Status: F Test: NEUTROPHILS %; Value: 71.8; Range: 36.0-66.0; Abnormal: Above high normal; Units: %; Status: F Test: LYMPH %; Value: 21.0; Range: 24.0-44.0; Abnormal: Below low normal; Units: %; Status: F Test: MONO %; Value: 4.5; Range: 0.0-5.0; Units: %; Status: F Test: EOS %; Value: 0.5; Range: 0.0-3.0; Units: %; Status: F Test: BASO %; Value: 0.4; Range: 0.0-1.0; Units: %; Status: F Test: LARGE UNSTAINED CELL %; Value: 1.9; Range: 0.0-4.0; Units: %; Status: F Test: NEUTROPHILS #; Value: 7.0; Range: 1.8-7.7; Units: K/mm3; Status: F Test: LYMPH #; Value: 2.0; Range: 1.5-4.5; Units: K/mm3; Status: F Test: MONO #; Value: 0.4; Range: 0.0-0.8; Units: K/mm3; Status: F Test: EOS #; Value: 0.0; Range: 0.0-0.50; Units: K/mm3; Status: F Test: BASO #; Value: 0.0; Range: 0.0-0.2; Units: K/mm3; Status: F Test: LARGE UNSTAINED CELL #; Value: 0.2; Range: 0.0-0.4; Units: K/mm3; Status: F Lab Order: MED Profile; [facility] 08/16/16 17:55 Test: GLUCOSE, FASTING; Value: 82; Range: 70-105; Units: MG/DL; Status: F Test: BLOOD UREA NITROGEN; Value: 6; Range: 7-18; Abnormal: Below low normal; Units: MG/DL; Status: F Test: CREATININE FOR GFR; Value: 0.78; Range: 0.55-1.02; Units: MG/DL; Status: F Test: GLOMERULAR FILTRATION RATE; Value: > 60.0; Range: >60; Status: F Test: SODIUM LEVEL; Value: 136; Range: 136-145; Units: MEQ/L; Status: F Test: POTASSIUM SERUM; Value: 3.8; Range: 3.5-5.1; Units: MEQ/L; Status: F Test: CHLORIDE LEVEL; Value: 102; Range: 98-107; Units: MEQ/L; Status: F Test: CARBON DIOXIDE LEVEL; Value: 24; Range: 21-32; Units: MEQ/L; Status: F Test: ANION GAP; Value: 10; Range: 8-16; Units: MEQ/L; Status: F Test: CALCIUM LEVEL; Value: 8.6; Range: 8.5-10.1; Units: MG/DL; Status: F Test Note: ; Units are mL/min/1.73 m2 Chronic Kidney Disease Staging per NKF: Stage I & II GFR >=60 Normal to Mildly Decreased Stage III GFR 30-59 Moderately Decreased Stage IV GFR 15-29 Severely Decreased Stage V GFR <15 Very Little GFR Left ESRD GFR <15 on VOLCANOLOGY TEACHER Lab Order: Hcg, Serum Quantitative; [facility] 08/16/16 17:55 Test: HCG, SERUM QUANTITATIVE; Value: [id number]; Units: MIU/ML; Status: F Test Note: ; GESTATIONAL AGE APPROXIMATE HCG RANGE (MIU/ML) 0.2-1 WEEK 5-50 1-2 WEEKS 50-500 2-3 WEEKS 100-5,000 3-4 WEEKS 500-10,000 4-5 WEEKS 1,000-50,000 5-6 WEEKS 10,000-100,000 6-8 WEEKS 15,000-200,000 2-3 MONTHS 10,000-100,000 NON FEMALES LESS THAN 3.0 Patient samples may contain human heterophilic antibodies that could react with immunoassays to give falsely elevated or depressed results. This assay has been designed to minimize interference from heterophilic antibodies. Elevated hCG levels have also been associated with trophoblastic disease and nontrophoblastic neoplasms. The possibility of having these diseases should be considered before a diagnosis of is made. This test is not intended for use as a surrogate marker for aiding in the diagnosis or monitoring the treatment of cancer patients. [employer] Jasper methodology. Lab Order: Type & Screen; [facility]08/[facility] 17:55 Test: BLOOD TYPE; Value: A POS; Status: F Test: AB SCREEN (INDIRECT JEFFREY)VIS; Value: NEGATIVE; Status: F Lab Order: UA; [facility] 08/16/16 17:55 Test: APPEARANCE, URINE; Value: CLEAR; Range: CLEAR; Status: F Test: COLOR, URINE; Value: YELLOW; Range: YELLOW; Status: F Test: PH,URINE; Value: 6.0; Range: 5.0-9.0; Units: UNITS; Status: F Test: SPECIFIC GRAVITY URINE AUTO; Value: 1.005; Range: 1.002-1.035; Status: F Test: PROTEIN, URINE AUTO; Value: NEGATIVE; Range: NEGATIVE; Units: mg/dL; Status: F Test: GLUCOSE, URINE (UA) AUTO; Value: NEGATIVE; Range: NEGATIVE; Units: mg/dL; Status: F Test: KETONE, URINE AUTO; Value: NEGATIVE; Range: NEGATIVE; Units: mg/dL; Status: F Test: UROBILINOGEN, URINE AUTO; Value: 0.2; Range: 0.0-2.0; Units: mg/dL; Status: F Test: BILIRUBIN, URINE AUTO; Value: NEGATIVE; Range: NEGATIVE; Status: F Test: NITRITE, URINE AUTO; Value: NEGATIVE; Range: NEGATIVE; Status: F Test: LEUKOCYTE ESTERASE, URINE AUTO; Value: NEGATIVE; Range: NEGATIVE; Status: F Test: BLOOD, URINE BLOOD; Value: NEGATIVE; Range: NEGATIVE; Status: F Test: WBC, URINE AUTO; Value: 2; Range: 0-3; Units: /HPF; Status: F Test: RBC, URINE AUTO; Value: 1; Range: 0-3; Units: /HPF; Status: F Test: BACTERIA, URINE AUTO; Value: 1+; Range: NEGATIVE; Abnormal: Above high normal; Status: F Test: SQUAMOUS EPITHELIAL CELL UR AU; Value: 3; Range: 0-6; Units: /HPF; Status: F Test: HYALINE CAST, URINE AUTO; Value: 0; Range: 0-1; Units: /LPF; Status: F Lab Order: Urine Culture; SPEC'M 08/16/16 17:55 Test: URINE CULTURE; Value: <EXTERNAL COMMENT eCWMed> FULL REPORT IN LAB NOTES (eCW and Medent).; Status: F Test: URINE CULTURE; Value: URINE CULTURE RESULT NO GROWTH; Status: F Radiology Order: US 1st trimester Test: US 1st trimester REASON FOR EXAMINATION: ABDOMINAL PAIN AND CRAMPING, R/O DEMISE; Clinical: Dating and viability.; ; Technique: Transabdominal first trimester examination with color Doppler; evaluation.; ; Findings:; Single live early intrauterine is appreciated. Gestational sac with; yolk sac and pole identified. [place]-rump length of 19 mm corresponds to 8; weeks 3 days gestational age with estimated date of delivery 03/25/2017 . ; heart rate equals 171 beats per minute. No gross abnormalities are identified.; ; Impression:; Single live early intrauterine at 8 weeks 3 days gestational age.; Complete anatomical assessment should be performed and 19-20 weeks.; ; ; Signed by; Chace Ramsey MD 08/16/2016 06:19 P; Outcome: 19:29 Discharge ordered by Provider. ck7 19:36 Discharge Assessment: Patient awake, alert and oriented x 3. No cognitive and/or slm functional deficits noted. Patient verbalized understanding of disposition instructions. patient administered narcotics - no. The following High Risk Discharge criteria are identified: None. Discharged to home ambulatory. Condition: good. Discharge instructions given to patient, Instructed on discharge instructions, follow up and referral plans. medication usage, Demonstrated understanding of instructions, medications, Pt was receptive of discharge instructions/ teaching. Prescriptions given X 1. Ultrasound Study completed. Property :Personal belongings accompany Pt. 19:38 Patient left the ED. slm Signatures: Dispatcher [employer] EDMS Wilfredo Novoa, Reg Reg kf3 Christiane AbadRN RN pml Laverne Krueger dem1 Frank Han, JUNAID-C RPA-Cck7 Luz Maria Mckeon LPN LPN slSenia Avitia am17 Connor Watts RN RN mb9 Roxie Triplett Corrections: (The following items were deleted from the chart) 17:45 17:29 2, Full Term 1, Living 1, LMP 06/14/2016 mb9 pml Chart Complete MTDD
== END 2016-08-16 19:38 | disposition home or self-care (01) ==
LOC: M ED 17:23
DX: O21.9 Vomiting of pregnancy, unspecified (principal); O99.011 Anemia complicating pregnancy, first trimester; D64.9 Anemia, unspecified; O99.341 Other mental disorders complicating pregnancy, first trimester; F32.9 Major depressive disorder, single episode, unspecified; O99.611 Diseases of the digestive system complicating pregnancy, first trimester; K21.9 Gastro-esophageal reflux disease without esophagitis; E55.9 Vitamin D deficiency, unspecified; E54 Ascorbic acid deficiency; Z79.899 Other long term (current) drug therapy; Z3A.09 9 weeks gestation of pregnancy

== ENCOUNTER 2018-02-19 13:19 | Emergency (ER) | payer OTHER ==
[2018-02-19] MEDS: KETOROLAC 60 MG/2 ML VIAL (J1885) IM (13:46)
[2018-02-19 13:58] LABS: KETONE, URINE AUTO RFX NEGATIVE (NEGATIVE); LEUKOCYTE ESTERASE UR AUTO RFX 3+ (NEGATIVE); MUCUS, URINE RFX SMALL (NEGATIVE); NITRITE, URINE AUTO RFX NEGATIVE (NEGATIVE); RBC, URINE AUTO RFX TNTC /HPF (0-3); SQUAM EPITHELIAL CELL UR AURFX 5 /HPF (0-6); YEAST LIKE CELL URINE AUTO RFX LARGE
[2018-02-19 13:59] LABS: WBC, URINE AUTO RFX TNTC /HPF (0-3)
[2018-02-19 14:05] LABS: BASO % 0.3 % (0.0-1.0); EOS # 0.1 10^3/uL (0.0-0.50); EOS % 0.6 % (0.0-3.0); HEMATOCRIT 39.1 % (36.0-47.0); IMMATURE GRANULOCYTE % 0.1 % (0-3.0); LYMPH # 1.9 10^3/uL (1.5-4.5); LYMPH % 18.6 % (24.0-44.0); MEAN CORPUSCULAR HGB CONC 33.2 g/dl (32.0-36.5); MEAN CORPUSCULAR VOLUME 81.3 fl (80.0-96.0); MONO # 0.5 10^3/uL (0.0-0.8); MONO % 4.8 % (0.0-5.0); NEUTROPHILS # 7.6 10^3/uL (1.8-7.7); NEUTROPHILS % 75.6 % (36.0-66.0); PLATELET COUNT, AUTOMATED 287 10^3/uL (150-450); RED BLOOD COUNT 4.81 10^6/uL (4.00-5.40); RED CELL DISTRIBUTION WIDTH 12.8 % (11.5-14.5); WHITE BLOOD COUNT 10.1 10^3/uL (4.0-10.0)
[2018-02-19 14:23] LABS: ANION GAP 7 MEQ/L (8-16); BLOOD UREA NITROGEN 10 MG/DL (7-18); CALCIUM LEVEL 8.8 MG/DL (8.5-10.1); CARBON DIOXIDE LEVEL 25 MEQ/L (21-32); CHLORIDE LEVEL 107 MEQ/L (98-107); CREATININE FOR GFR 0.88 MG/DL (0.55-1.30); GLOMERULAR FILTRATION RATE > 60.0 (>60); GLUCOSE, FASTING 89 MG/DL (70-100); POTASSIUM SERUM 3.9 MEQ/L (3.5-5.1); SODIUM LEVEL 139 MEQ/L (136-145)
== END 2018-02-19 15:06 | disposition home or self-care (01) ==
LOC: M ED 13:19
DX: N30.91 Cystitis, unspecified with hematuria (principal); I10 Essential (primary) hypertension; D68.59 Other primary thrombophilia; D50.9 Iron deficiency anemia, unspecified; Z87.891 Personal history of nicotine dependence; Z79.899 Other long term (current) drug therapy
CPT/HCPCS: J1885

== ENCOUNTER 2019-03-02 17:31 | Emergency (ER) | payer OTHER ==
[~2019-03-02] VITALS: Ht 167.6 cm; Wt 120.2 kg
[2019-03-02 17:31] VITALS: BP 137/84
[~2019-03-02 17:31] MED LIST: BACT800T5 PO; DIFL150T PO; FERR325T3; KEFL500C17 PO; LISI-672
[2019-03-02] MEDS ORDERED: VITA1CAP25 (17:37)
[2019-03-02] MEDS ORDERED: TOPA100T12 PO (17:37)
[2019-03-02] MEDS ORDERED: VITA100T59 PO (17:38)
[2019-03-02] MEDS ORDERED: LEXA1TAB PO (17:38)
[2019-03-02] MEDS ORDERED: MIRA0.12 PO (17:38)
[2019-03-02] MEDS ORDERED: AMOX500C PO (18:23)
== END 2019-03-02 19:15 | disposition home or self-care (01) ==
LOC: M ED 17:31
DX: J02.0 Streptococcal pharyngitis (principal); H92.02 Otalgia, left ear; Z20.9 Contact with and (suspected) exposure to unspecified communicable disease; I10 Essential (primary) hypertension; D64.9 Anemia, unspecified; F32.9 Major depressive disorder, single episode, unspecified; F41.9 Anxiety disorder, unspecified; Z97.5 Presence of (intrauterine) contraceptive device; Z79.899 Other long term (current) drug therapy